=== PATIENT | female | born 1970 | race Caucasian/White ===

== ENCOUNTER 2016-08-14 19:08 | Emergency (ER) | payer OTHER ==
[~2016-08-14] VITALS: Ht 154.9 cm; Wt 81.6 kg
[~2016-08-14 19:08] MED LIST: AMLODIPINE BESY10 M1 PO; ASPIR 8181 MG PO; BENAZEPRIL HYDR20 M1 PO; BENAZEPRIL20 M1 PO; DIPHENHYDRAMINE50 MG PO; EC NAPROSYN500 MG PO; IMITREX100 MG PO; METFORMIN HCL500 MG PO; METFORMIN HCL850 MG PO; METFORMIN850 M1 PO; METOPROLOL SUCC25 M1; METOPROLOL TART25 M1 PO; NOR5 PO; OMEPRAZOLE DR20 M1 PO; ZES10 PO; ZOCOR20 MG PO
[2016-08-14 23:02] VITALS: BP 122/89
== END 2016-08-14 23:03 | disposition home or self-care (01) ==
LOC: ED 19:08
DX: F41.9 Anxiety disorder, unspecified (principal); E11.9 Type 2 diabetes mellitus without complications
CPT/HCPCS: J2060

== ENCOUNTER 2016-09-03 07:43 | Emergency (ER) | payer OTHER ==
[~2016-09-03] VITALS: Ht 154.9 cm; Wt 81.2 kg
[2016-09-03 08:35] LABS: BASOPHIL % 0.5 % (0-2); PLATELET COUNT 262 x10^3mcL (130-400)
[2016-09-03 08:39] LABS: microscopic required? NO
[2016-09-03 08:40] LABS: CALCIUM 8.9 mg/dL (8.5-10.1); CARBON DIOXIDE 29.3 mmol/L (21-32); CHLORIDE SERUM 98 mmol/L (98-107); CREATININE SERUM 0.6 mg/dL (0.6-1.0); GFR1 > 60 mL/min; GLUCOSE SERUM 270 mg/dL (74-106); POTASSIUM SERUM 3.7 mmol/L (3.5-5.1); SODIUM SERUM 134 mmol/L (136-145)
[2016-09-03 08:45] LABS: ALKALINE PHOSPHATASE 114 U/L (46-116); ALT/SGPT 56 U/L (14-59); AST/SGOT 23 U/L (15-37); BILIRUBIN TOTAL 0.54 mg/dL (0.20-1.00); CHOLESTEROL 213 mg/dL (<200); CHOLESTEROL/HDL RATIO 4.1; HDL CHOLESTEROL 52 mg/dL (40-60); LIPASE 165 IU/L (73-393); TOTAL PROTEIN, SERUM 7.2 g/dL (6.4-8.2); TRIGLYCERIDES 108 mg/dL (<150)
[2016-09-03 08:56] LABS: FREE T4 1.29 ng/dL (0.76-1.46); FREE THYROXINE INDEX 3.8 ug/dL (1.4-4.5); T4(THYROXINE) 11.6 ug/dL (4.7-13.3)
[2016-09-03 09:04] LABS: urine erythrocyte NEGATIVE (NEGATIVE)
[2016-09-03 09:51] LABS: T3 TOTAL 1.51 ng/mL
[2016-09-03 10:38] VITALS: BP 136/76
== END 2016-09-03 11:28 | disposition left against medical advice (07) ==
LOC: ED 07:43
PROVIDERS: Specialist
DX: R07.89 Other chest pain (principal); R42 Dizziness and giddiness; R11.0 Nausea; I10 Essential (primary) hypertension; E11.9 Type 2 diabetes mellitus without complications; E78.5 Hyperlipidemia, unspecified; E66.9 Obesity, unspecified; G43.909 Migraine, unspecified, not intractable, without status migrainosus; F43.10 Post-traumatic stress disorder, unspecified
CPT/HCPCS: 83880; 84439; J1885

== ENCOUNTER 2016-11-05 21:03 | Emergency (ER) | payer OTHER ==
[2016-11-06 00:22] VITALS: BP 130/83
== END 2016-11-06 00:22 | disposition home or self-care (01) ==
LOC: ED 21:03
DX: F41.0 Panic disorder [episodic paroxysmal anxiety] (principal); I10 Essential (primary) hypertension; E11.9 Type 2 diabetes mellitus without complications; Z79.899 Other long term (current) drug therapy
CPT/HCPCS: J1885; J2060

== ENCOUNTER 2017-03-29 10:36 | Emergency (ER) | payer OTHER ==
[~2017-03-29] VITALS: Ht 154.9 cm; Wt 75.7 kg
[2017-03-29 11:53] LABS: ALKALINE PHOSPHATASE 92 U/L (46-116); ALT/SGPT 69 U/L (14-59); AST/SGOT 47 U/L (15-37); BILIRUBIN TOTAL 0.8 mg/dL (0.20-1.00); CALCIUM 7.6 mg/dL (8.5-10.1); CARBON DIOXIDE 26.8 mmol/L (21-32); CHLORIDE SERUM 100 mmol/L (98-107); CREATININE SERUM 0.7 mg/dL (0.6-1.0); GFR1 > 60 mL/min; GLUCOSE SERUM 135 mg/dL (74-106); LIPASE 110 IU/L (73-393); SODIUM SERUM 135 mmol/L (136-145); TOTAL PROTEIN, SERUM 6.8 g/dL (6.4-8.2)
[2017-03-29 11:59] LABS: ALBUMIN 3.3 g/dL (3.4-5.0); AMYLASE 20 U/L (25-115)
[2017-03-29 12:08] LABS: BASOPHIL % 0.3 % (0-2); PLATELET COUNT 222 x10^3mcL (130-400); RED CELL DISTRIBUTION WIDTH 12.6 % (11.5-14.5)
[2017-03-29 12:26] LABS: microscopic required? NO
[2017-03-29 12:37] LABS: UA SPECIFIC GRAVITY <=1.005 (1.005-1.035); urine erythrocyte NEGATIVE (NEGATIVE)
[2017-03-29 17:35] VITALS: BP 103/54
== END 2017-03-29 17:35 | disposition home or self-care (01) ==
LOC: ED 10:36
PROVIDERS: Emergency Medicine
DX: E87.6 Hypokalemia (principal); R07.9 Chest pain, unspecified; R10.13 Epigastric pain; G43.909 Migraine, unspecified, not intractable, without status migrainosus; I10 Essential (primary) hypertension; E11.9 Type 2 diabetes mellitus without complications; Z90.710 Acquired absence of both cervix and uterus
CPT/HCPCS: J1170; J1885; J2405; J3480; J7030; J7040; Q0092